=== PATIENT | male | born 1990 | race Caucasian/White ===

== ENCOUNTER 2017-06-25 11:34 | Emergency (ER) | payer BC, OTHER ==
[~2017-06-25] VITALS: Ht 188 cm; Wt 75.1 kg
[~2017-06-25 11:34] MED LIST: ACET500C5 PO; CEPH-443 PO; TRAM50TA2 PO
[2017-06-25 11:37] VITALS: Ht 188 cm; Wt 75.1 kg
[2017-06-25] MEDS ORDERED: HYDROCODONE/APAP (5/325) TAB PO ONE (13:00)
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
[2017-06-25] MEDS ORDERED: IBUP-1542 PO (13:58)
[2017-06-25] MEDS ORDERED: HYDR-906 PO (13:58)
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
== END 2017-06-25 15:01 | disposition home or self-care (01) ==
LOC: FTE 11:34
DX: S82.62XA Displaced fracture of lateral malleolus of left fibula, initial encounter for closed fracture (principal); F17.210 Nicotine dependence, cigarettes, uncomplicated; R51 Headache; Y04.0XXA Assault by unarmed brawl or fight, initial encounter
CPT/HCPCS: 70450; 70486; 73610